=== PATIENT | male | born 1995 ===

== ENCOUNTER 2019-06-12 12:19 | Emergency (ER) | payer OTHER ==
[~2019-06-12] VITALS: Ht 182.9 cm; Wt 77.1 kg
[2019-06-12] MEDS ORDERED: ACID REDUCER20 M1 (12:44)
[2019-06-12] MEDS ORDERED: ORPHENADRINE C100 MG PO (14:22)
[2019-06-12] MEDS ORDERED: IBU600 MG PO (14:22)
== END 2019-06-12 15:01 | disposition home or self-care (01) ==
LOC: ER 12:19
DX: M94.0 Chondrocostal junction syndrome [Tietze] (principal); R07.89 Other chest pain; M79.18 Myalgia, other site

== ENCOUNTER 2021-07-26 19:07 | Emergency (ER) | payer OTHER ==
[~2021-07-26] VITALS: Ht 182.9 cm; Wt 86.2 kg
[~2021-07-26 19:07] MED LIST: ACID REDUCER20 M1; IBU600 MG PO; ORPHENADRINE C100 MG PO
[2021-07-26] MEDS ORDERED: MEDROLPACK PO ×2 (21:48→21:49)
== END 2021-07-26 22:26 | disposition home or self-care (01) ==
LOC: ER 19:07
DX: U07.1 COVID-19 (principal); R06.00 Dyspnea, unspecified; Z91.013 Allergy to seafood

== ENCOUNTER 2021-08-01 12:14 | Emergency (ER) | payer OTHER ==
[~2021-08-01] VITALS: Ht 182.9 cm; Wt 86.2 kg
[~2021-08-01 12:14] MED LIST changes: +MEDROLPACK PO
[2021-08-01] MEDS ORDERED: PRILOSEC OTC20 MG (12:21)
== END 2021-08-01 12:44 | disposition home or self-care (01) ==
LOC: ER 12:14
DX: U07.1 COVID-19 (principal); A49.3 Mycoplasma infection, unspecified site; R53.1 Weakness; R06.02 Shortness of breath

== ENCOUNTER 2021-08-13 21:43 | Emergency (ER) | payer OTHER ==
[~2021-08-13] VITALS: Ht 182.9 cm; Wt 83.9 kg
[~2021-08-13 21:43] MED LIST changes: -ALBUTEROL2.5 MG/3 M IH; -ZYNCOF 20-400120 ML PO
[2021-08-14] MEDS ORDERED: ALBUTEROL2.5 MG/3 M IH (03:11)
[2021-08-14] MEDS ORDERED: ZYNCOF 20-400120 ML PO (03:11)
== END 2021-08-14 03:21 | disposition home or self-care (01) ==
LOC: ER 21:43
DX: R06.02 Shortness of breath (principal); Z91.013 Allergy to seafood

== ENCOUNTER → 2021-08-13 | Emergency (ER) | payer OTHER ==
[~2021-08-13] MED LIST changes: +ALBUTEROL2.5 MG/3 M IH; +PRILOSEC OTC20 MG; +ZYNCOF 20-400120 ML PO
== END | disposition home or self-care (01) ==
LOC: ER 21:22
DX: R06.02 Shortness of breath (principal); Z91.013 Allergy to seafood

== ENCOUNTER 2021-08-25 00:42 | Emergency (ER) | payer OTHER ==
[~2021-08-25] VITALS: Ht 182.9 cm; Wt 84.4 kg
[~2021-08-25 00:42] MED LIST changes: +ALBUTEROL2.5 MG/3 M IH; +ZYNCOF 20-400120 ML PO
[2021-08-25] MEDS ORDERED: ACID REDUCER20 M1 PO (00:53)
[2021-08-25] MEDS ORDERED: BUDEO.25 IH (00:54)
[2021-08-25] MEDS ORDERED: PHENAGIL TABLE1 EACH PO (04:24)
== END 2021-08-25 04:36 | disposition home or self-care (01) ==
LOC: ER 00:42
DX: R20.2 Paresthesia of skin (principal); Z91.013 Allergy to seafood; R42 Dizziness and giddiness; J45.909 Unspecified asthma, uncomplicated

== ENCOUNTER → 2021-09-12 | Outpatient (CLI) | payer OTHER ==
[~2021-09-12] MED LIST changes: +ACID REDUCER20 M1 PO; +BUDEO.25 IH; +PHENAGIL TABLE1 EACH PO
== END | disposition home or self-care (01) ==
LOC: NUCLEAR 10:33
PROVIDERS: ATTEND Specialist
DX: R06.00 Dyspnea, unspecified (principal); U07.1 COVID-19; I26.99 Other pulmonary embolism without acute cor pulmonale
CPT/HCPCS: 78580; A9540